=== PATIENT | female | born 1975 | race Caucasian/White ===

== ENCOUNTER 2016-10-04 13:47 | Outpatient (CLI) | payer SELFPAY ==
--- NOTE | 2016-10-04 15:17 | DIAGNOSTIC IMAGING REPORT ---
PROCEDURE: US COMPLETE PELVIC W/TRANSVAG INDICATION: PELVIC PAIN TECHNIQUE: Transabdominal and endovaginal cohen scale and color Doppler sonographic images of the female pelvis were obtained. COMPARISON: None. FINDINGS: TRANSABDOMINAL SCANS: The uterus is of normal size 9.0 x 4.8 x 6.1 cm. There is a mild hydro nephrosis involving the right kidney. TRANSVAGINAL SCANS: The uterus is anteverted. Myometrium contains 2 cm fibroid The endometrium measures 6.4 mm. Right ovary is normal measuring 3.1 x 2.9 x 1.8 cm. The left ovary is normal measuring 3.9 x 2.7 x 1.9 cm. There is a trace of free fluid. There is an IUD in correct position. IMPRESSION: 1. 2 cm uterine fibroid.
== END 2016-10-04 23:00 ==
LOC: US SRH 13:47
DX: R10.2 Pelvic and perineal pain (principal); D25.9 Leiomyoma of uterus, unspecified